=== PATIENT | female | born 1995 | race Hispanic/Latino ===

== ENCOUNTER 2023-11-08 20:56 | Emergency (ER) | payer SELFPAY ==
[2023-11-08] MEDS ORDERED: Acetaminophen 500 MG TAB ONE (22:13)
[2023-11-08] MEDS ORDERED: cefTRIAXone (ROCEPHIN) 1 GM VIAL ONE (22:34)
[2023-11-08] MEDS ORDERED: Ondansetron PF 4 MG/2 ML Vial ONE (22:34)
[2023-11-08 22:42] LABS: Bilirubin Neg (Negative); Blood, Urine 10 (Negative); Clarity Clear (Clear); Glucose, Urine (Dipstick) Normal (Negative); Ketone, Urine 15 mg/dL (Negative); Leukocyte 500 (Negative); Nitrite Negative (Negative); Pregnancy Test - Urine (BHCG) Negative (Negative); Pregu Control Background? CLEAR/WHITE (CLR/WHITE); Pregu Control Bar Appear? YES (CONTROL BAR); Protein, Urine (Dipstick) Negative (Neg-Trace); Urobilinogen Normal mg/dL (Less than 2)
[2023-11-08 22:44] LABS: #Basophils 0.03 10x3/uL (0.0-0.2); #Eosinphils 0.01 10x3/uL (0.0-0.5); #Monocytes 0.51 10x3/uL (0.0-1.1); #Neutrophils 3.34 10x3/uL (1.5-8.4); %Basophils 0.6 % (0.0-2.0); %Eosinophils 0.2 % (0.0-6.0); %Lymphocytes 26.8 % (18.0-47.0); %Monocytes 9.6 % (0.0-10.0); %Neutrophils 62.4 % (40.0-75.0); Hematocrit 40.3 % (34.9-44.5); Hemoglobin 14.3 g/dL (12.0-15.5); Mean Corpuscular HGB CONC 35.5 g/dL (32.0-36.0); Mean Corpuscular Hemoglobin 31.3 pg (27.0-33.0); Mean Corpuscular Volume 88.2 fL (81.6-98.3); Mean Platelet Volume 9.5 fL (7.4-10.4); Platelet Count 237 10x3/uL (150-450); RBC Distribution Width 12.3 % (11.5-14.5); Red Blood Cell (RBC) Count 4.57 10x6/uL (3.90-5.03); White Blood Cell (WBC) Count 5.3 10x3/uL (3.5-10.5)
[2023-11-08 22:47] LABS: Bacteria/HPF None Seen HPF (None Seen); CAUTI Indications for Culture Pelvic or flank pain; RBC/HPF 0-3 HPF (0-3)
[2023-11-08 22:48] LABS: Urine Culture Reflex No No
[2023-11-08 22:49] LABS: ALT (SGPT) 60 U/L (8-55); AST (SGOT) 54 U/L (5-34); Albumin 3.6 g/dL (3.5-5.0); Alkaline Phosphatase 85 U/L (40-110); Anion Gap 14 mmol/L (10-20); BUN (Urea Nitrogen) 7 mg/dL (7.0-18.7); Bilirubin, Total 0.4 mg/dL (0.2-1.2); Calc. Creatinine Clearance 0 mL/min (70-130); Calcium 9.4 mg/dL (7.8-10.44); Carbon Dioxide 21 mmol/L (22-29); Chloride 104 mmol/L (98-107); Estimated GFR 122; Glucose 96 mg/dL (70-105); Potassium 3.7 mmol/L (3.5-5.1); Protein, Total 7.6 g/dL (6.0-8.3); Sodium 135 mmol/L (136-145)
[2023-11-08 23:16] LABS: Influenza A by NAA Not Detected (NotDetected); Influenza B by NAA Not Detected (NotDetected); SARS-CoV-2 NAA Rapid Test Not Detected (NotDetected)
[2023-11-09] MEDS ORDERED: Ketorolac Tromethamine 30 MG (1 mL) VIAL ONE (00:48)
== END 2023-11-09 01:00 | disposition home or self-care (01) ==
LOC: CSHERS 20:56
DX: N39.0 Urinary tract infection, site not specified (principal)
CPT/HCPCS: 80053; 81001; 81025; 85025; 93005; 96372; 96374; 96375; J0696; J1885; J2405